=== PATIENT | female | born 1970 | race Caucasian/White ===

== ENCOUNTER → 2021-07-20 | Day surgery (SDC) | payer OTHER ==
[~2021-07-20] VITALS: Ht 170.2 cm; Wt 106.8 kg
[~2021-07-20] MED LIST: ALBUTEROL SULFATE 2.5 MG/0.5 ML NEB SOLUTION NEB ONE; ASPI-1444 PO; ATOR40TA71 PO; CARB200T6 PO; CETI10TA58 PO; CHOL100062 PO; DIAZ5TAB5 PO; FAMO20 PO; FLUO20TA29 PO; FLUT1BLS13 IH; FentaNYL CITRATE PF 100 MCG/2 ML VIAL ONE; GABA-533 PO; LIDOCAINE 2% 30 ML JELLY TP ONE; LIDOCAINE 4% 50 ML SOLUTION TP ONE; MIDAZOLAM HCL 5 MG/ML VIAL ONE; MONT-40 PO; MethylPREDNISolone SOD SUCC 125 MG/2 ML VIAL IVP ONE; MethylPREDNISolone SOD SUCC 125 MG/2 ML VIAL ONE; NOCURR; OXYGEN THERAPY IH SCH; SODIUM CHLORIDE 0.9% 1,000 ML IV ONE; SODIUM CHLORIDE 0.9% 1,000 ML ONE; VICOT
[2021-07-20 05:56] LABS: COVID AG,FIA SOURCE NASAL SWAB
== END | disposition still patient (30) ==
LOC: SURGERY 05:15
PROVIDERS: ATTEND Internal Medicine Critical Care Medicine
DX: J38.4 Edema of larynx (principal); B37.0 Candidal stomatitis; Z86.73 Personal history of transient ischemic attack (TIA), and cerebral infarction without residual deficits; Z82.3 Family history of stroke; Z90.49 Acquired absence of other specified parts of digestive tract; Z98.890 Other specified postprocedural states; Z79.899 Other long term (current) drug therapy
CPT/HCPCS: 31623; 31624; 71045; 71250; 87015; 87070; 87101; 87206; 87220; 87426; 88112; 88184; 88185; 88312; C9803; J2250; J2930; J3010; J7030; J7613; Z7610

== ENCOUNTER 2023-10-31 06:21 | Day surgery (SDC) | payer OTHER ==
[~2023-10-31] VITALS: Ht 170.2 cm; Wt 114.5 kg
[~2023-10-31 06:21] MED LIST changes: +ALBU18HF12 IH; -ALBUTEROL SULFATE 2.5 MG/0.5 ML NEB SOLUTION NEB ONE; +AZEL137S8 NASAL; +BACL20TA PO; +BUPR-113 PO; -CARB200T6 PO; -DIAZ5TAB5 PO; +DICL100G60 TP; -FAMO20 PO; +FAMO20TA8 PO; -FLUO20TA29 PO; -FLUT1BLS13 IH; -FentaNYL CITRATE PF 100 MCG/2 ML VIAL ONE; -GABA-533 PO; +GABA-534 PO; -LIDOCAINE 2% 30 ML JELLY TP ONE; -LIDOCAINE 4% 50 ML SOLUTION TP ONE; -MIDAZOLAM HCL 5 MG/ML VIAL ONE; -MethylPREDNISolone SOD SUCC 125 MG/2 ML VIAL IVP ONE; -MethylPREDNISolone SOD SUCC 125 MG/2 ML VIAL ONE; -NOCURR; -OXYGEN THERAPY IH SCH; +ROPI2TAB26 PO; -SODIUM CHLORIDE 0.9% 1,000 ML IV ONE; -SODIUM CHLORIDE 0.9% 1,000 ML ONE; -VICOT; +[UNRECOGNIZED DRUG - CODE] PO
[2023-10-31] MEDS ORDERED: LIDOCAINE 4% 50 ML SOLUTION TP ONE (06:22)
[2023-10-31] MEDS ORDERED: LIDOCAINE 2% 11 ML JELLY TP ONE (06:22)
[2023-10-31] MEDS ORDERED: BENZOCAINE 20% 50 MCG/SPRAY 57 GM TP ONE (06:22)
[2023-10-31] MEDS ORDERED: ALBUTEROL SULFATE 2.5 MG/0.5 ML NEB SOLUTION NEB ONE (06:22)
[2023-10-31] MEDS: SODIUM CHLORIDE 0.9% 1,000 ML IV ONE ×2 (07:42→08:17)
[2023-10-31] MEDS ORDERED: MIDAZOLAM HCL 2 MG/2 ML VIAL ONE (08:22)
[2023-10-31] MEDS ORDERED: FentaNYL CITRATE PF 100 MCG/2 ML VIAL ONE (08:23)
[2023-10-31 09:10] VITALS: PULSE 83; RESP 20; O2SAT 99
[2023-10-31] MEDS ORDERED: MethylPREDNISolone SOD SUCC 125 MG/2 ML VIAL ONE (09:43)
[2023-10-31] MEDS: MethylPREDNISolone SOD SUCC 125 MG/2 ML VIAL IVP ONE (09:44)
== END 2023-10-31 11:20 | disposition home or self-care (01) ==
LOC: SURGERY 06:21
PROVIDERS: ATTEND Internal Medicine Critical Care Medicine
DX: R05.3 Chronic cough (principal); I70.0 Atherosclerosis of aorta; R91.8 Other nonspecific abnormal finding of lung field; J98.09 Other diseases of bronchus, not elsewhere classified; J84.10 Pulmonary fibrosis, unspecified; J98.8 Other specified respiratory disorders; J45.909 Unspecified asthma, uncomplicated; Z87.01 Personal history of pneumonia (recurrent); Z85.21 Personal history of malignant neoplasm of larynx; Z79.899 Other long term (current) drug therapy; F17.210 Nicotine dependence, cigarettes, uncomplicated; Z98.891 History of uterine scar from previous surgery; Z98.890 Other specified postprocedural states
CPT/HCPCS: 31623; 87206; 87101; 87220; 87070; 31624; 94640; 71045; 87015; J3010; J2250; J2919; Q9967; J7613; Z7610

== ENCOUNTER 2025-03-30 05:26 | Day surgery (SDC) | payer OTHER ==
[~2025-03-30] VITALS: Ht 170.2 cm; Wt 117.0 kg
[~2025-03-30 05:26] MED LIST changes: +FURO40TA6 PO; +LOSA-381 PO; +METO25XL PO; +SPIR-37 PO
[2025-03-30] MEDS ORDERED: SODIUM CHLORIDE 0.9% 1,000 ML ONE (05:58)
[2025-03-30] MEDS: SODIUM CHLORIDE 0.9% 1,000 ML IV ONE (06:35)
[2025-03-30] MEDS ORDERED: LIDOCAINE/PF 2% 5 ML VIAL ONE (12:00)
[2025-03-30] MEDS ORDERED: PROPOFOL 1% 20 ML VIAL IVP ONE (12:00)
[2025-03-30] MEDS ORDERED: OXYGEN THERAPY IH SCH (20:00)
== END 2025-03-30 12:55 | disposition home or self-care (01) ==
LOC: SURGERY 05:26
PROVIDERS: ATTEND Specialist
DX: Z12.11 Encounter for screening for malignant neoplasm of colon (principal); K63.5 Polyp of colon; K62.1 Rectal polyp; G25.81 Restless legs syndrome; I50.9 Heart failure, unspecified; Z86.0100 Personal history of colon polyps, unspecified; Z98.890 Other specified postprocedural states; Z86.73 Personal history of transient ischemic attack (TIA), and cerebral infarction without residual deficits; Z90.49 Acquired absence of other specified parts of digestive tract; Z88.8 Allergy status to other drugs, medicaments and biological substances; Z82.49 Family history of ischemic heart disease and other diseases of the circulatory system; Z80.1 Family history of malignant neoplasm of trachea, bronchus and lung
CPT/HCPCS: 45385; 88305; J2704; J3490; J7030